=== PATIENT | male | born 1990 ===

== ENCOUNTER 2022-12-15 14:34 | Emergency (ER) | payer SELFPAY ==
[2022-12-15 14:39] VITALS: BP 115/83; PULSE 88; RESP 16; O2SAT 93; BMI 20.2
--- NOTE | 2022-12-15 14:47 | XR_ITS ---
WS: [id number] XR shoulder LT min 2V* [id number] REASON FOR EXAM: trauma/pain FINDINGS: No fracture identified. The acromioclavicular joint space is intact and well preserved. Glenohumeral joint space is intact and well preserved. No soft tissue abnormality. XR/XR shoulder LT min 2V* [id number] IMPRESSION: No acute abnormality.
[2022-12-15] MEDS: HYDROcodone-acetaminophen 5-325 mg Tablet 1 TAB PO (15:06)
[2022-12-15 15:08] VITALS: O2SAT 98
--- NOTE | 2022-12-15 15:28 | ED_ITS ---
HPI - Extremity Problem General: Chief complaint: Extremity Injury, Upper Stated complaint: dislocated shoulder Time Seen by Provider: 12/15/22 14:45 Source: patient Mode of arrival: other (In the custody of [facility]) History of Present Illness: 32-year-old male presents emergency room complaining of left shoulder pain he fell this afternoon he hurt his left shoulder he is concerned he may be dislocat ed he denies any other injury he has been able to move the arm. MD Complaint: joint pain Onset (ago): hour(s) Pain Consistency: constant Location: left and upper extremity (Shoulder) Quality: sharp Relieving factors: immobilization Exacerbating factors: range of motion and palpation Associated symptoms: Deny chest pain Review of Systems Card: Denies: chest pain Resp: Denies: dyspnea GI: Denies: abdominal pain Musc: Reports: joint pain Physical Exam Const: GENERAL APPEARANCE: cooperative and comfortable ORIENTATION/CONSCIOUSNESS: Yes awake, Yes oriented to person, Yes oriented to place and Yes oriented to time HENMT: COMMON NORMALS: normocephalic, atraumatic and hearing grossly normal bilaterally HEAD & SCALP: normocephalic and atraumatic Resp: COMMON NORMALS: normal respiratory effort, No retractions, No use of accessory muscles and clear to auscultation bilaterally AUSCULTATION: clear to auscultation bilaterally Cardio: COMMON NORMALS: regular rate, regular rhythm and No murmurs present (Cardio) RATE: regular rate RHYTHM: regular rhythm Extremity: OTHER: Mild discomfort with abduction and extension and external rotation no crepitus shoulder joint palpably intact. Neuro: SENSORIUM/ORIENTATION: Yes oriented to person, Yes oriented to place and Yes oriented to time Skin: COMMON NORMALS: no rashes or lesions noted GENERAL SKIN EXAM: no rashes or lesions noted Course Vital Signs: Vital signs: Vital Signs Pulse Rate 88 12/15/22 14:39 Respiratory Rate 16 12/15/22 14:39 Blood Pressure 115/83 12/15/22 14:39 Pulse Oximetry 98 12/15/22 15:08 Oxygen Delivery Me thod Room Air 12/15/22 15:08 MDM - Extremity (Nontraumatic) Medical Decision Making X-ray shows no acute fracture no dislocation. Suspect sprain may have impinged the bursa or even partially torn rotator cuff although his exam does not suggestive of a significant rotator cuff injury at this time. Diclofenac 1 p.o. every 12 hours as needed if persist follow-up with primary care or orthopedics as needed. Lab Data Radiology Impressions Shoulder X-Ray 12/15/22 14:47 IMPRESSION: No acute abnormality. Discharge Plan Discharge Patient Disposition: Home Clinical Impression: Sprain of left shoulder Condition: Stable Prescriptions: New diclofenac sodium 75 mg tablet,delayed release (DR/EC) 75 mg PO Q12H PRN (Reason: pain) Qty: 20 0RF Discharge Orders: Discharge ED (Routine); Ordered 12/15/22 Ordered By: Lewis Franco Referrals: Av Gonzalez MD [Primary Care Provider] - Discharge Diet: Usual diet Discharge Activity: Limit activity as instructed Patient Instructions: Shoulder Sprain (ED), Opioid Safety, Pain Management Coding Level of Care Code ED Rf Engineer for Chiquis Summers
== END 2022-12-15 15:21 | disposition home or self-care (01) ==
PROVIDERS: Emergency Provider Family Medicine; PCP Family Medicine
DX: S43.402A Unspecified sprain of left shoulder joint, initial encounter (principal); W19.XXXA Unspecified fall, initial encounter
CPT/HCPCS: 73030; 99283